=== PATIENT | female | born 1970 | race Caucasian/White ===

== ENCOUNTER 2021-12-21 14:18 | Emergency (ER) | payer SELFPAY ==
[~2021-12-21] VITALS: Ht 152.4 cm; Wt 68.6 kg
[2021-12-21 14:21] VITALS: BP 163/79
[2021-12-21 14:37] VITALS: BP 118/70
[2021-12-21 15:35] LABS: HEMATOCRIT 21.2 % (36-48); MEAN CORPUSCULAR HEMOGLOBIN 16 pg (27-31); MEAN CORPUSCULAR HGB CONC 28 g/dL (33-37); MEAN CORPUSCULAR VOLUME 54.5 fL (80-94); PLATELET COUNT (AUTO) 407 K/uL (140-450); RED BLOOD CELL COUNT(AUTO) 3.89 MIL/uL (4.20-5.40); RED CELL DISTRIBUTION WIDTH 20.7 % (11.6-13.7); WHITE BLOOD COUNT (AUTO) 3.7 K/uL (4.8-10.8)
[2021-12-21 15:51] LABS: ANION GAP 13.6 (8-16); CARBON DIOXIDE 24.8 mmol/L (21-32); CREATININE 0.6 mg/dL (0.6-1.3); POTASSIUM 3.4 mmol/L (3.5-5.1)
[2021-12-21 15:56] LABS: PROTHROMBIN TIME 10.2 secs (10.8-13.4)
--- NOTE | 2021-12-21 16:05 | NUR ---
51 y/o female bib self from home, c/o weakness, fatigue and anemia for 2 months. pt states she has been feeling weak for 2 months and was seen at a clinic today for symptoms. was told her hgb was 5.7 and was instructed to come here for further evaluation. denies nausea, vomiting, diarrhea. skin is pink/warm/dry. a&o x4 with even and steady gait. lungs clear bl, heart rate even and regular. pt denies dysuria, hematuria, urinary frequency or retention, or anyone sick in the household with the same symptoms. pt denies any fever, cp, sob, or cough at this time. pt states pain is 0/10 at this time. vss. patient positioned for comfort. hob elevated. bed down. ermd made aware of pt. pmh: denies nka med: denies
--- NOTE | 2021-12-21 16:29 | NUR ---
pt unable to give urine at this time. estefani swabbed and sent to lab
--- NOTE | 2021-12-21 18:20 | NUR ---
blood consent obtained at this time, called lab states blood may be ready in 30 minutes and they will call to notify when blood is ready.
--- NOTE | 2021-12-21 20:05 | NUR ---
Blood transfusion started, pt is resting in bed comfortably w/ HOB raised, rails up x2, and bed in lowest position. Pt is not complaining of pain, fever, chills at this time.
[2021-12-21 20:28] LABS: BASOPHILS % (MANUAL) 2 % (0-2); EOSINOPHILS % (MANUAL) 6 % (0-4); LYMPHOCYTES % (MANUAL) 38 % (20-46); MONOCYTES % (MANUAL) 9 % (5-12)
[2021-12-21] MEDS ORDERED: FERR236T2 PO (21:55)
--- NOTE | 2021-12-21 22:08 | NUR ---
blood transfusion complete at 2200. pt has no reactions and no complaints. pt tolerated procedure well.
[2021-12-21 22:35] VITALS: BP 110/50
--- NOTE | 2021-12-21 22:35 | NUR ---
Patient discharged with v/s stable. Written and verbal after care instructions given and explained. Patient alert, oriented and verbalized understanding of instructions. Ambulatory with steady gait. All questions addressed prior to discharge. ID band removed. Patient advised to follow up with PMD. Rx of ferrous gluconate given. Patient educated on indication of medication including possible reaction and side effects. Opportunity to ask questions provided and answered.
== END 2021-12-21 22:35 | disposition home or self-care (01) ==
LOC: MED 14:18
DX: D50.0 Iron deficiency anemia secondary to blood loss (chronic) (principal); N93.8 Other specified abnormal uterine and vaginal bleeding; D25.9 Leiomyoma of uterus, unspecified; Z20.822 Contact with and (suspected) exposure to COVID-19
CPT/HCPCS: 36415; 80048; 81025; 85025; 85610; 85730; 86886; 86900; 86901; 86920; 87426; 99285; P9016